=== PATIENT | female | born 1985 | race Caucasian/White ===

== ENCOUNTER 2018-09-25 09:34 | Inpatient (IN) | payer MEDICAID ==
[~2018-09-25] VITALS: Ht 170.2 cm; Wt 83.6 kg
[2018-09-25 10:00] VITALS: BP 134/70
[2018-09-25 10:46] LABS: MICROSCOPIC AUTO
[2018-09-25] MEDS ORDERED: OXYTOCIN 30U/ 0.9% NaCL 500ML 500 ML IV ONE (11:14)
[2018-09-25] MEDS ORDERED: D5%-LACTATED RINGERS 1,000 ML IV SCH (11:14)
[2018-09-25] MEDS ORDERED: LACTATED RINGERS 1,000 ML IV SCH ×2 (11:14→17:36)
[2018-09-25] MEDS ORDERED: FENTANYL PF 100 MCG/2ML ONE (11:29)
[2018-09-25] MEDS ORDERED: LIDOCAINE 1%, 20ML ONE (11:30)
[2018-09-25] MEDS ORDERED: OXYTOCIN 30U/ 0.9% NaCL 500ML 500 ML ONE ×2 (11:30→21:00)
[2018-09-25] MEDS ORDERED: TERBUTALINE 1 MG/ML, 1ML IVPush PRN ×2 (11:30)
[2018-09-25] MEDS ORDERED: NEWBORN KIT ONE (11:30)
[2018-09-25] MEDS ORDERED: FENTANYL PF 100 MCG/2ML IVPush PRN (11:30)
[2018-09-25] MEDS ORDERED: MISOPROSTOL 200 MCG TABLET ONE (11:30)
[2018-09-25] MEDS: FENTANYL PF 100 MCG/2ML IV PRN ×2 (12:14→12:48)
[2018-09-25] MEDS ORDERED: PLEASE ENTER HEIGHT AND WEIGHT MC SCH ×2 (12:46→13:00)
[2018-09-25] MEDS ORDERED: BUPIVACAINE 0.25% ONE (13:53)
[2018-09-25 13:55] LABS: BASOPHILS # (AUTO) 0.03 x10^3/uL (0-0.1); BASOPHILS % (AUTO) 0 % (0-1); EOSINOPHILS # (AUTO) 0.32 x10^3/uL (0-0.4); EOSINOPHILS % (AUTO) 3 % (1-7); LYMPHOCYTES # (AUTO) 1.25 x10^3/uL (1-3.4); LYMPHOCYTES % (AUTO) 10 % (22-44); MD NO; MEAN CORPUSCULAR HEMOGLOBIN 30.7 pg (27.0-34.8); MEAN CORPUSCULAR VOLUME 90.2 fL (80-100); MEAN PLATELET VOLUME 10.4 fL (7.4-10.4); MONOCYTES # (AUTO) 0.65 x10^3/uL (0.2-0.8); MONOCYTES % (AUTO) 5 % (2-9); NEUTROPHILS % (AUTO) 82 % (42-75); PLATELET COUNT 204 x10^3/uL (130-400); RED BLOOD COUNT 4.32 x10^6/uL (3.82-5.3)
[2018-09-25] MEDS: LACTATED RINGERS 1,000 ML IV SCH ×2 (14:01→22:01)
[2018-09-25] MEDS ORDERED: FENTANYL/BUPIV./NS/PF 250 ML EPIDCONT SCH ×2 (14:01→17:36)
[2018-09-25] MEDS ORDERED: LACTATED RINGERS 1,000 ML IVBOLUS PRN ×2 (14:30→18:00)
[2018-09-25] MEDS ORDERED: FENTANYL PF 500 MCG, BUPIVACAINE/PF 0.5%, 30ML 62.5 ML in SODIUM CHLORIDE 0.9% 177.5 ML EPIDCONT SCH (14:30)
[2018-09-25] MEDS ORDERED: OXYTOCIN 30U/ 0.9% NaCL 500ML 500 ML IV PRN (16:40)
[2018-09-25] MEDS ORDERED: NALOXONE 0.4 MG/ML, 1ML IVPush PRN (18:00)
[2018-09-25] MEDS ORDERED: ONDANSETRON 2MG/ML, 2ML IVPush PRN (18:00)
[2018-09-25] MEDS ORDERED: EPHEDRINE 50 MG/ML, 1ML IVPush PRN (18:00)
[2018-09-25] MEDS ORDERED: DIPHENHYDRAMINE 50 MG/ML, 1ML IVPush PRN (18:00)
[2018-09-25 19:23] VITALS: BP 134/90
[2018-09-25] MEDS ORDERED: MISOPROSTOL 200 MCG TABLET PR PRN (21:00)
[2018-09-25] MEDS ORDERED: OXYcodone IR 5MG TABLET PO PRN (21:00)
[2018-09-25] MEDS ORDERED: IBUPROFEN 600 MG TABLET ONE (21:00)
[2018-09-25] MEDS ORDERED: MAGNESIUM HYDROXIDE 8%, 30ML UDC PO PRN (21:00)
[2018-09-25] MEDS ORDERED: DIPH,PERTUSS(ACELL),TET VAC/PF NC IM-VACC PRN (21:00)
[2018-09-25] MEDS ORDERED: RHOGAM FROM BLOOD BANK 1 NOTE EA IM/IV ONE (21:00)
[2018-09-25] MEDS ORDERED: MEASLES,MUMPS&RUBELLA VACC/PF 0.5 ML SQ PRN (21:00)
[2018-09-25] MEDS ORDERED: ONDANSETRON 2MG/ML, 2ML IV PRN (21:00)
[2018-09-25] MEDS ORDERED: DOCUSATE 100 MG CAPSULE PO PRN (21:00)
[2018-09-25] MEDS ORDERED: CALCIUM CARBONATE 500 MG TAB.CHEW PO PRN (21:00)
[2018-09-25] MEDS: OXYTOCIN 30U/ 0.9% NaCL 500ML 500 ML IV SCH (21:06)
[2018-09-25] MEDS: IBUPROFEN 600 MG TABLET PO PRN (21:07)
[2018-09-26] VITALS: BP 133/88
[2018-09-26 04:00] VITALS: BP 116/77
[2018-09-26] MEDS: IBUPROFEN 600 MG TABLET PO PRN ×3 (05:12→18:06)
[2018-09-26 05:35] LABS: BASOPHILS # (AUTO) 0.03 x10^3/uL (0-0.1); BASOPHILS % (AUTO) 0 % (0-1); EOSINOPHILS # (AUTO) 0.28 x10^3/uL (0-0.4); EOSINOPHILS % (AUTO) 2 % (1-7); LYMPHOCYTES # (AUTO) 1.71 x10^3/uL (1-3.4); LYMPHOCYTES % (AUTO) 14 % (22-44); MD NO; MEAN CORPUSCULAR HEMOGLOBIN 30.6 pg (27.0-34.8); MEAN CORPUSCULAR HGB CONC 33.8 g/dL (32.4-35.8); MEAN CORPUSCULAR VOLUME 90.5 fL (80-100); MEAN PLATELET VOLUME 9.6 fL (7.4-10.4); MONOCYTES # (AUTO) 0.52 x10^3/uL (0.2-0.8); MONOCYTES % (AUTO) 4 % (2-9); NEUTROPHILS # (AUTO) 10.12 x10^3/uL (1.8-6.8); NEUTROPHILS % (AUTO) 80 % (42-75); PLATELET COUNT 197 x10^3/uL (130-400); RED BLOOD COUNT 3.88 x10^6/uL (3.82-5.3); RED CELL DISTRIBUTION WIDTH 13.3 % (9.6-15.2)
[2018-09-26] MEDS: LACTATED RINGERS 1,000 ML IV SCH (06:01)
[2018-09-26] MEDS: OXYTOCIN 30U/ 0.9% NaCL 500ML 500 ML IV SCH (06:41)
[2018-09-26] MEDS: OXYcodone/APAP 5/325MG TABLET PO PRN ×3 (07:55→18:05)
[2018-09-26 08:00] VITALS: BP 125/82
[2018-09-26] MEDS ORDERED: PRENATAL VIT/IRON/FA 1 EACH TABLET PO SCH (09:00)
[2018-09-26 12:11] VITALS: BP 105/69
[2018-09-26] MEDS ORDERED: IBUP-1222 PO (13:00)
== END 2018-09-26 19:30 | disposition home or self-care (01) | DRG 807 ==
LOC: LDOP 09:34 → LDIP 11:14 → 2NW 21:54
PROVIDERS: ADMIT Obstetrics & Gynecology; ATTEND Obstetrics & Gynecology
PROC: 10E0XZZ Delivery of Products of Conception, External Approach (ICD-10-PCS; principal; 2018-09-25)
PROC: 0KQM0ZZ Repair Perineum Muscle, Open Approach (ICD-10-PCS; 2018-09-25)
PROC: 3E0R3BZ Introduction of Anesthetic Agent into Spinal Canal, Percutaneous Approach (ICD-10-PCS; 2018-09-25)
PROC: 00HU33Z Insertion of Infusion Device into Spinal Canal, Percutaneous Approach (ICD-10-PCS; 2018-09-25)
DX: O77.0 Labor and delivery complicated by meconium in amniotic fluid (principal); Z37.0 Single live birth; O70.1 Second degree perineal laceration during delivery; Z3A.39 39 weeks gestation of pregnancy
CPT/HCPCS: 36415; 81001; 82803; 85025; 86850; 86900; 89060; G0378; J3010; J3490; J2590; J7050; J7120; Q0114